=== PATIENT | male | born 1975 | race African-American/Black ===

== ENCOUNTER 2016-11-27 14:07 | Emergency (ER) | payer OTHER ==
--- NOTE | ~2016-11-27 | CR142 ---
[facility] A Service of [facility] RADIOLOGY TEXT RESULTS PATIENT: BAL DE LA VEGA JR LOCATION: [facility] : 71 UNIT #: [id number] AGE: [address]: Kendrick Avelar MD SEX: M ORDER DR: [id number] [facility] [address] [place], [place] [address] [id number] MR#: [id number] #: [id number] NAME: BAL DE LA VEGA JR : 1975 SEX: M STUDY DATE/TIME: 11/27/2016 UNIT: [facility] ROOM: STUDY DESCRIPTION: CR Hand Min 3 Views Rt Attending Physician: Kendrick Avelar M.D. Ordering Physician: Ed Doctor [id number] [facility] Primary Care Physician: Herber RenPSangeethaRVesna MEDICAL IMAGING REPORT This report is preliminary unless electronic signature is present EXAM Right hand 11/27 at 12:45 INDICATIONS Extreme hand pain, predominantly in the fifth metacarpal. Patient woke up from nightmare and punched something in his sleep, probably a wall. TECHNIQUE 3 views of the right hand were obtained. COMPARISON STUDIES No comparison. FINDINGS There is a comminuted fracture of the fifth metacarpal neck which appears somewhat impacted. There is overlying soft tissue swelling. The rest of the hand is negative. IMPRESSION Mildly impacted boxer fracture with soft tissue swelling. Dictated by... Mio Gomes Jr., M.D. THIS IS AN ELECTRONICALLY VERIFIED REPORT Mio Gomes Jr., M.D. at 11/30/2016 7:59 AM RLK/alisson TD: 11/27/2016 15:21 JOB #: [id number] [facility] A Service [facility] RADIOLOGY TEXT RESULTS PATIENT: BAL DE LA VEGA JR LOCATION: [facility] : 71 UNIT #: [id number] AGE: [address]: Kendrick Avelar MD SEX: M ORDER DR: MEDICAL IMAGING REPORT Page 1 of 1 COPY
[~2016-11-27 14:07] MED LIST: ALBUTEROL INHALER; ALBUTEROL17 GM INH; ALLEGRA PO; ALLERCLEAR10 MG PO; ALLERGY SHOTS WEEKLY; AMOXICILLIN875 MG PO; AMOXIL500 M1 PO; APIDRA (NF100 UNITS/ SUBQ; APIDRA SOL100 UNIT/1 SUBQ; ASPIRIN; ASPIRIN PO; ASPIRIN81 MG PO; ATIVAN PO; AZITHROMYCIN500 MG PO; BENICAR HCT 40-1 TAB PO; BENZONATATE PO; CENTRUM PO; CLOTRIMAZOLE-BE45 GM TP; DICLOFENAC; DICLOFENAC PO; DULOXETINE DR PO; FENOFIBRATE PO; FENOFIBRATE48 MG PO; FLEXERIL PO; FLEXERIL10 MG PO; FLUTICASONE; GABAPENTIN600 MG PO; HUMALOG INSULIN SQ; HUMULIN N300 U/3 ML; HYDROCODONE-APA1 T58 PO; KEFLEX500 M1 PO; LANTUS INSULIN SQ; LANTUS SOLOSTAR3 ML SUBQ; LANTUS100 U/ML SQ; LIPITOR PO; LISINOPRIL PO; LISINOPRIL-HCTZ1 T14 PO; LORTAB 10/500 T1 TAB; LORTAB 5/500 TA1 TA1 PO; MEDROL4 MG/DOSE- PO; METFORMIN PO; METHOCARBAMOL500 MG PO; MOBIC PO; MONTELUKAST SOD10 MG PO; MOTRIN400 MG PO; NAPROSYN500 MG PO; NAPROXEN PO; NASAL SPRAY; NEURONTIN PO; NORCO 7.5MG PO; NOVOLOG100 U/ML SUBQ; ORUDIS75 M1 PO; PEN-VEE K PO; PHENERGAN25 MG PO; PREDNISONE PO; PROMETHAZINE D118 ML; PSEUDOEPHEDRIN120 M1 PO; ROBAXIN PO; ROBITUSSIN A-C-S1 ML PO; SILVADENE TOP; SINGULAIR PO; SUDAFED PO; VIBRAMYCIN100 M1 DOB; VIBRAMYCIN100 M1 PO; VICODIN 5/1 TAB 5/50 PO; VOLTAREN75 MG PO; ZITHROMAX PO; ZOCOR
== END 2016-11-27 14:35 | disposition home or self-care (01) ==
LOC: CED 14:07
DX: S62.336A Displaced fracture of neck of fifth metacarpal bone, right hand, initial encounter for closed fracture (principal); I10 Essential (primary) hypertension; E11.9 Type 2 diabetes mellitus without complications; Z91.013 Allergy to seafood; W22.01XA Walked into wall, initial encounter; Y92.009 Unspecified place in unspecified non-institutional (private) residence as the place of occurrence of the external cause
CPT/HCPCS: 29125; 73130; 99283